=== PATIENT | male | born 1995 ===

== ENCOUNTER 2017-10-20 15:07 | Emergency (ER) | payer MEDICAID, OTHER ==
[2017-10-20 15:18] VITALS: BP 162/89; PULSE 66; RESP 16; TEMP 98.1; O2SAT 98
--- NOTE | 2017-10-20 15:34 | C.PDOC ---
History Of Present Illness 21 yo mlae w/o significnat PMHx come in for evaluation of Right thumb nail discoloration has for past 10 years. Pt reports, " yesterday was goggle and it says it might be cancer". Otherwise, pt denies any other active complaints. Denies known trauma or injury, fever, chills, recent illness, denies deformity to Right hand, weakness, sensory or vascular deficits to Right hand. Ambulate to ED for evaluation, not in any apparent distress. Time Seen by Provider: 10/20/17 15:33 Chief Complaint (Nursing): Medical Clearance History Per: Patient Past Medical History Reviewed: Historical Data, Nursing Documentation, Vital Signs Vital Signs: Last Vital Signs Temp 98.1 F 10/20/17 15:14 Pulse 66 10/20/17 15:14 Resp 16 10/20/17 15:14 BP 162/89 H 10/20/17 15:14 Pulse Ox 98 10/20/17 15:34 - Medical History PMH: No Chronic Diseases Family History: States: No Known Family Hx - Social History Hx Alcohol Use: No Hx Substance Use: No - Immunization History Hx Tetanus Toxoid Vaccination: No Hx Influenza Vaccination: No Hx Pneumococcal Vaccination: No Review Of Systems Except As Marked, All Systems Reviewed And Found Negative. Constitutional: Negative for: Fever, Chills, Malaise, Weight loss Eyes: Negative for: Vision Change ENT: Negative for: Throat Pain Cardiovascular: Negative for: Chest Pain, Palpitations Respiratory: Negative for: Cough, Shortness of Breath Gastrointestinal: Negative for: Nausea, Vomiting, Abdominal Pain, Diarrhea Musculoskeletal: Negative for: Neck Pain, Back Pain, Hand Pain Skin: Positive for: Other (mail discoloration) Neurological: Negative for: Weakness, Numbness Physical Exam - Physical Exam Appears: Well, Non-toxic, No Acute Distress Skin: Normal Color, Warm, No Rash, Other (RIGHT THUMB: HORIZONTAL LINE ALONG NAIL BROWNISH DISCOLORATION.) Head: Normacephalic Eye(s): bilateral: PERRL Extremity: Normal ROM (RIGHT HAND, NO NEUROVASCULAR DEFICITS), No Tenderness, Capillary Refill (LESS THAN 2SEC TO RIGHT THUMB), No Deformity, No Swelling Neurological/Psych: Oriented x3, Normal Speech, Normal Motor, Normal Sensation, Normal Reflexes ED Course And Treatment O2 Sat by Pulse Oximetry: 98 Pulse Ox Interpretation: Normal Progress Note: On re-eval, pt is afebrile, hemodynamiclay stable. Non-toxic. Right hand: small linear discoloration noted to Righ thumb. FAROM, no neurovascular deficits, no deformity. Pt advised and ref. to F/u wit Clinic, Derm in 2-3 days for re-eavl. return to ED if any worsening or new chages. Disposition Counseled Patient/Family Regarding: Diagnosis, Need For Followup - Disposition Referrals: [facility] [Outside] Disposition: HOME/ ROUTINE Disposition Time: 15:34 Condition: STABLE Additional Instructions: FOLLOW UP WITH DERMATOLOGY FOR FURTHER EVALUATION AND TREATMENT NEED Instructions: Normal Exam (ED) Forms: [facility] (Paraguayan) - Clinical Impression Clinical Impression: Nail discoloration
== END 2017-10-20 15:55 | disposition home or self-care (01) ==
LOC: C.ER 15:07
DX: L60.8 Other nail disorders (principal)